=== PATIENT | male | born 1990 ===

== ENCOUNTER 2019-09-20 19:56 | Emergency (ER) | payer BC, OTHER ==
--- OUTSIDE RECORDS SUMMARY | 2019-09-20 19:59 | XMS REPORT ---
:1990 [facility] [address] [place] [address] [place] [id number] Care Team Providers Name Role Phone Unavailable Unavailable Unavailable Problems This patient has no known problems. Allergies, Adverse Reactions, Alerts This patient has no known allergies or adverse reactions. Medications This patient has no known medications.
[2019-09-20] MEDS ORDERED: PANTOPRAZOLE 40 MG INJ ONE (20:36)
[2019-09-20] MEDS ORDERED: ONDANSETRON 4 MG/2 ML VIAL ONE (20:36)
[2019-09-20] MEDS ORDERED: MORPHINE 4 MG/ML SYR ONE (20:36)
[2019-09-20] MEDS ORDERED: NA CHLORIDE 0.9% 1,000 ML ONE (20:36)
[2019-09-20 20:40] LABS: Absolute Lymphocytes (CBC) 2.2 K/uL (0.7-4.9); Basophils % 0.5 % (0-1.3); Hematocrit 54.8 % (39.6-49.0); Lymphocytes % 24.4 % (15.3-44.8); MPV 9.4 fL (7.6-11.3); RBC Red Blood Cell Count 6.14 M/uL (4.33-5.43)
[2019-09-20 20:58] LABS: Albumin 4.1 g/dL (3.4-5.0); Bilirubin Direct 0.2 mg/dL (0-0.2); Bilirubin Total 0.6 mg/dL (0.2-1.0); Potassium 4.6 mmol/L (3.5-5.1); Protein, Total 7.2 g/dL (6.4-8.2)
--- NOTE | 2019-09-20 23:13 | ER ---
Nurse's Notes [facility] Name: Parish Anthony Age: 29 yrs Sex: Male : 1990 Arrival Date: 09/20/2019 Time: 20:00 Bed 19 Private MD: Diagnosis: gastric distention;Upper abdominal pain, unspecified Presentation: 09/20 20:06 Presenting complaint: Patient states: Epigastric pain that started 2 weeks ago, sg worsening today, reports taking aleve daily for the pain for two weeks, has had bright red blood in vomit that started a week ago, has had gas and indigestion with burps that smell rotten. Transition of care: patient was not received from another setting of care. Onset of symptoms was September 20, 2019. Risk Assessment: Do you want to hurt yourself or someone else? Patient reports no desire to harm self or others. Initial Sepsis Screen: Does the patient meet any 2 criteria? No. Patient's initial sepsis screen is negative. Does the patient have a suspected source of infection? No. Patient's initial sepsis screen is negative. Care prior to arrival: None. 20:06 Method Of Arrival: Ambulatory sg 20:06 Acuity: ROXI 3 sg Historical: - Allergies: 20:09 No Known Allergies; sg - Home Meds: 20:09 None [Active]; sg - PMHx: 20:09 None; sg - PSHx: 20:09 None; sg - Immunization history:: Adult Immunizations not up to date. - Social history:: Smoking status: Patient/guardian denies using tobacco. - Ebola Screening: : Patient negative for fever greater than or equal to 101.5 degrees Fahrenheit, and additional compatible Ebola Virus Disease symptoms Patient denies exposure to infectious person Patient denies travel to an Ebola-affected area in the 21 days before illness onset No symptoms or risks identified at this time. Screenin:48 Abuse screen: Denies threats or abuse. Denies injuries from another. Nutritional wh screening: No deficits noted. Nutritional screening: No deficits noted. Tuberculosis screening: No symptoms or risk factors identified. Fall Risk None identified. Assessment: 20:46 General: Appears in no apparent distress. Behavior is calm, cooperative, appropriate wh for age. Pain: Complains of pain in epigastric area Pain does not radiate. Pain currently is 9 out of 10 on a pain scale. Quality of pain is described as crampy, pressure, Pain began 1 day ago. Neuro: Level of Consciousness is awake, alert, obeys commands, Oriented to person, place, time, situation, Appropriate for age. Cardiovascular: Heart tones S1 S2. Respiratory: Airway is patent Respiratory effort is even, unlabored, Respiratory pattern is regular, symmetrical, Breath sounds are clear bilaterally. GI: Abdomen is flat, non-distended, Bowel sounds present X 4 quads. Abd is soft and non tender X 4 quads. Reports upper abdominal pain, indigestion, nausea, vomiting. : No signs and/or symptoms were reported regarding the genitourinary system. EENT: No signs and/or symptoms were reported regarding the EENT system. Derm: Skin is intact, is healthy with good turgor, Skin is pink, warm \T\ dry. normal. Musculoskeletal: Circulation, motion, and sensation intact. 22:08 Reassessment: Patient appears in no apparent distress at this time. No changes from previously documented assessment. Patient and/or family updated on plan of care and expected duration. Pain level reassessed. Patient is alert, oriented x 3, equal unlabored respirations, skin warm/dry/pink. 23:39 Reassessment: Patient appears in no apparent distress at this time. No changes from previously documented assessment. Patient and/or family updated on plan of care and expected duration. Pain level reassessed. Patient is alert, oriented x 3, equal unlabored respirations, skin warm/dry/pink. Patient denies pain at this time. Patient states feeling better. Patient states symptoms have improved. Vital Signs: 20:07 BP 187 / 92; Pulse 87; Resp 20; Temp 97.7; Pulse Ox 100% on R/A; Weight 102.06 kg (R); Height 5 ft. 7 in. (170.18 cm) (R); Pain 10/10; 20:49 BP 125 / 69; Pulse 83; Resp 18; Pulse Ox 97% on R/A; wh 22:08 BP 146 / 88; Pulse 81; Resp 18; Pulse Ox 97% ; wh 23:39 BP 142 / 57; Pulse 71; Resp 18; Pulse Ox 96% on R/A; wh 20:07 Body Mass Index 35.24 (102.06 kg, 170.18 cm) ED Course: 20:00 Patient arrived in ED. jg7 20:03 Arm band placed on. sg 20:06 Citlalli Hobbs FNP-C is [facility]. kb 20:06 Patrick Mendoza MD is Attending Physician. kb 20:07 Nnamdi Arguelles is Primary Nurse. 20:07 Triage completed. 20:20 Inserted saline lock: 20 gauge in right antecubital area, using aseptic technique. Blood collected. 20:48 Patient has correct armband on for positive identification. Bed in low position. Call light in reach. Side rails up X 1. Pulse ox on. NIBP on. 21:45 CT Abd/Pelvis - IV Contrast Only In Process Unspecified. EDMS 23:38 No provider procedures requiring assistance completed. IV discontinued, intact, wh bleeding controlled, No redness/swelling at site. Administered Medications: 20:35 Drug: NS 0.9% 1000 ml Route: IV; Rate: 1000 ml; Site: right antecubital; 23:12 Follow up: Response: No adverse reaction; IV Status: Completed infusion 20:37 Drug: ProTONIX 40 mg Route: IVP; Site: right antecubital; 23:12 Follow up: Response: No adverse reaction 20:39 Drug: Zofran 4 mg Route: IVP; Site: right antecubital; 23:12 Follow up: Response: No adverse reaction 23:12 Follow up: Response: No adverse reaction; Nausea is decreased 20:41 Drug: morphine 4 mg Route: IVP; Site: right antecubital; 23:12 Follow up: Response: No adverse reaction; Pain is decreased; RASS: Alert and Calm (0) 23:22 Drug: Reglan 10 mg Route: IVP; Site: right antecubital; 23:38 Follow up: Response: No adverse reaction; Nausea is decreased Outcome: 23:12 Discharge ordered by . kb 23:38 Discharged to home ambulatory, with family. 23:38 Condition: stable 23:38 Discharge instructions given to patient, family, Instructed on discharge instructions, follow up and referral plans. medication usage, POC Demonstrated understanding of instructions, follow-up care, medications, POC Prescriptions given X 1. 23:40 Patient left the ED. Signatures: Dispatcher [employer] EDMS Citlalli Hobbs FNP-C DOCUMENTATION DESIGNER-CkMarquis Laguna, RN RN Nnamdi Felipe Jessica jg7
--- NOTE | 2019-09-20 23:13 | EDPHYS ---
Physician Documentation [facility] Name: Parish Anthony Age: 29 yrs Sex: Male : 1990 Arrival Date: 09/20/2019 Time: 20:00 Bed 19 Private MD: ED Physician Patrick Mendoza HPI: 09/20 21:34 This 29 yrs old Unknown Male presents to ER via Ambulatory with complaints of Abdominal kb Pain. 21:34 The patient presents with abdominal pain abdominal distention. Onset: The kb symptoms/episode began/occurred 2 day(s) ago. The symptoms do not radiate. Associated signs and symptoms: Pertinent positives: nausea, vomiting, and diarrhea, vomiting blood. The symptoms are described as constant. Modifying factors: The symptoms are alleviated by nothing, the symptoms are aggravated by nothing. Severity of pain: At its worst the pain was moderate in the emergency department the pain is unchanged. The patient has not experienced similar symptoms in the past. The patient has not recently seen a physician. Pt reports he has been having abd pain, n/v/d for 2 days. States the vomit is blood streaked at times. Has been taking aleve for the past 2 weeks for pain in his arm.. Historical: - Allergies: 20:09 No Known Allergies; sg - Home Meds: 20:09 None [Active]; sg - PMHx: 20:09 None; sg - PSHx: 20:09 None; sg - Immunization history:: Adult Immunizations not up to date. - Social history:: Smoking status: Patient/guardian denies using tobacco. - Ebola Screening: : Patient negative for fever greater than or equal to 101.5 degrees Fahrenheit, and additional compatible Ebola Virus Disease symptoms Patient denies exposure to infectious person Patient denies travel to an Ebola-affected area in the 21 days before illness onset No symptoms or risks identified at this time. ROS: 21:33 Constitutional: Negative for fever, chills, and weight loss, ENT: Negative for injury, kb pain, and discharge, Neck: Negative for injury, pain, and swelling, Cardiovascular: Negative for chest pain, palpitations, and edema, Respiratory: Negative for shortness of breath, cough, wheezing, and pleuritic chest pain, Back: Negative for injury and pain, MS/Extremity: Negative for injury and deformity, Skin: Negative for injury, rash, and discoloration, Neuro: Negative for headache, weakness, numbness, tingling, and seizure. 21:33 Abdomen/GI: Positive for abdominal pain, diarrhea, abdominal distension. Exam: 21:32 Constitutional: This is a well developed, well nourished patient who is awake, alert, kb and in no acute distress. Head/Face: Normocephalic, atraumatic. ENT: Nares patent. No nasal discharge, no septal abnormalities noted. Tympanic membranes are normal and external auditory canals are clear. Oropharynx with no redness, swelling, or masses, exudates, or evidence of obstruction, uvula midline. Mucous membranes moist. Neck: Trachea midline, no thyromegaly or masses palpated, and no cervical lymphadenopathy. Supple, full range of motion without nuchal rigidity, or vertebral point tenderness. No Meningismus. Chest/axilla: Normal chest wall appearance and motion. Nontender with no deformity. No lesions are appreciated. Cardiovascular: Regular rate and rhythm with a normal S1 and S2. No gallops, murmurs, or rubs. Normal PMI, no JVD. No pulse deficits. Respiratory: Lungs have equal breath sounds bilaterally, clear to auscultation and percussion. No rales, rhonchi or wheezes noted. No increased work of breathing, no retractions or nasal flaring. Back: No spinal tenderness. No costovertebral tenderness. Full range of motion. Skin: Warm, dry with normal turgor. Normal color with no rashes, no lesions, and no evidence of cellulitis. MS/ Extremity: Pulses equal, no cyanosis. Neurovascular intact. Full, normal range of motion. Neuro: Awake and alert, GCS 15, oriented to person, place, time, and situation. Cranial nerves II-XII grossly intact. Motor strength 5/5 in all extremities. Sensory grossly intact. Cerebellar exam normal. Normal gait. 21:32 Abdomen/GI: Inspection: distension, that is moderate, in the right upper quadrant and left upper quadrant, Bowel sounds: normal, in all quadrants, Palpation: mild abdominal tenderness, in all quadrants, moderate abdominal tenderness, in the right upper quadrant. Vital Signs: 20:07 BP 187 / 92; Pulse 87; Resp 20; Temp 97.7; Pulse Ox 100% on R/A; Weight 102.06 kg (R); sg Height 5 ft. 7 in. (170.18 cm) (R); Pain 10/10; 20:49 BP 125 / 69; Pulse 83; Resp 18; Pulse Ox 97% on R/A; wh 22:08 BP 146 / 88; Pulse 81; Resp 18; Pulse Ox 97% ; wh 23:39 BP 142 / 57; Pulse 71; Resp 18; Pulse Ox 96% on R/A; wh 20:07 Body Mass Index 35.24 (102.06 kg, 170.18 cm) sg MDM: 20:07 Patient medically screened. kb 21:32 Data reviewed: vital signs, nurses notes. Data interpreted: Pulse oximetry: on room air kb is 97 %. Interpretation: normal. 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 09/20 20:12 Order name: Basic Metabolic Panel; Complete Time: 21:04 kb 09/20 20:12 Order name: CBC with Diff; Complete Time: 20:45 kb 09/20 20:12 Order name: Hepatic Function; Complete Time: 21:04 kb 09/20 20:12 Order name: Lipase; Complete Time: 21:04 kb 09/20 21:04 Order name: CT Abd/Pelvis - IV Contrast Only kb 09/20 20:12 Order name: IV Saline Lock; Complete Time: 20:29 kb 09/20 20:12 Order name: Labs collected and sent; Complete Time: 20:29 kb Administered Medications: 20:35 Drug: NS 0.9% 1000 ml Route: IV; Rate: 1000 ml; Site: right antecubital; 23:12 Follow up: Response: No adverse reaction; IV Status: Completed infusion 20:37 Drug: ProTONIX 40 mg Route: IVP; Site: right antecubital; 23:12 Follow up: Response: No adverse reaction 20:39 Drug: Zofran 4 mg Route: IVP; Site: right antecubital; 23:12 Follow up: Response: No adverse reaction 23:12 Follow up: Response: No adverse reaction; Nausea is decreased 20:41 Drug: morphine 4 mg Route: IVP; Site: right antecubital; 23:12 Follow up: Response: No adverse reaction; Pain is decreased; RASS: Alert and Calm (0) 23:22 Drug: Reglan 10 mg Route: IVP; Site: right antecubital; 23:38 Follow up: Response: No adverse reaction; Nausea is decreased Disposition: 09/21 00:52 Co-signature as Attending Physician, Patrick Mendoza MD. rn Disposition: 09/20/19 23:12 Discharged to Home. Impression: gastric distention, Upper abdominal pain, unspecified. - Condition is Stable. - Discharge Instructions: Abdominal Pain, Adult, [id number], Gastroparesis. - Prescriptions for Reglan 10 mg Oral Tablet - take 1 tablet by ORAL route every 6 hours take 30 minutes before meals and at bedtime; 40 tablet. - Medication Reconciliation Form, Thank You Letter, Antibiotic Education, Prescription Opioid Use form. - Follow up: Emergency Department; When: As needed; Reason: Worsening of condition. Follow up: Private Physician; When: 2 - 3 days; Reason: Recheck today's complaints, Continuance of care, Re-evaluation by your physician. Signatures: Dispatcher [employer] Citlalli Llamas, BRASS WIND INSTRUMENT MAKER-C BRASS WIND INSTRUMENT MAKER-Ckb Marquis Benjamin RN RN sg Nieto, Roman, MD MD rn [facility] Corrections: (The following items were deleted from the chart) 09/20 23:40 23:12 09/20/2019 23:12 Discharged to Home. Impression: gastric distention; Upper wh abdominal pain, unspecified. Condition is Stable. Forms are Medication Reconciliation Form, Thank You Letter, Antibiotic Education, Prescription Opioid Use. Follow up: Emergency Department; When: As needed; Reason: Worsening of condition. Follow up: Private Physician; When: 2 - 3 days; Reason: Recheck today's complaints, Continuance of care, Re-evaluation by your physician. kb
[2019-09-20] MEDS ORDERED: METOCLOPRAMIDE 10 MG/2mL INJ ONE (23:21)
[2019-09-20 23:53] VITALS: TEMP 97.7
[2019-09-20 23:57] VITALS: BP 142/57; O2SAT 96
--- NOTE | 2019-09-21 12:03 | RAD REPORT ---
EXAM DESCRIPTION: CT ABDOMEN AND PELVIS WITH CONTRAST CLINICAL HISTORY: Epigastric pain COMPARISON: None Available. TECHNIQUE: CT of the abdomen and pelvis performed following IV administration of iodinated contrast. FINDINGS: Lung Bases: The visualized lung bases are clear. Bones: Mild degenerative change of the spine. Abdomen: Liver: The liver has normal size and density. No intrahepatic mass or biliary dilatation. Gallbladder: No calcified gallstones. Spleen, Pancreas, and Adrenal Glands: Mild splenomegaly. The pancreas and adrenal glands are unrema rkable. Kidneys: The kidneys have normal size without evidence of solid mass or hydronephrosis. Vasculature: The aorta and IVC have normal caliber and position. The portal vein is patent. The pro ximal visceral and renal arteries are patent. Stomach: Gastric distention. Other: No free intraperitoneal air. No free fluid or lymphadenopathy. Pelvis: Bladder: Urinary bladder is unremarkable. Bowel: No dilated loops of large or small bowel. Appendix: Normal appendix. Pelvis: Prostate is not enlarged. IMPRESSION: 1. Moderate gastric distention without evidence of mechanical obstruction. This may be r elated to recent meal or could be seen with gastroparesis. 2. Mild splenomegaly. This exam was performed according to our departmental dose-optimization program, which includes autom ated exposure control, adjustment of the mA and/or kV according to patient size and/or use of iterati ve reconstruction technique. Electronically signed by: Edgar Hinsd 09/20/2019 10:10 PM COLLECTION SYSTEMS TECHNICIAN Due to temporary technical issues with the PACS/Fluency reporting system, reports are being signed by the in house radiologist as a courtesy to ensure prompt reporting. The interpreting radiologist is f ully responsible for the content of the report.
== END 2019-09-20 23:40 | disposition home or self-care (01) ==
LOC: ER 19:56
DX: R14.0 Abdominal distension (gaseous) (principal)
CPT/HCPCS: 96361; 85025; 80048; 36415; 80076; 83690; 74177; 96375; 96374; 99284; Q9967; J2765; C9113; J7030; J2405